=== PATIENT | male | born 1990 | race Caucasian/White ===

== ENCOUNTER 2018-08-02 09:44 | Emergency (ER) | payer SELFPAY ==
[~2018-08-02] VITALS: Ht 170.2 cm; Wt 76.0 kg
[2018-08-02 09:46] VITALS: BP 120/57; PULSE 71; RESP 18; Ht 170.2 cm; Wt 76.0 kg
[2018-08-02] MEDS ORDERED: ACETAMINOPHEN 325 MG TAB PO ONE (10:30)
[2018-08-02] MEDS ORDERED: LIDOCAINE 1%/EPI (MDV) 50 ML INJ INJ ONE (10:30)
[2018-08-02] MEDS ORDERED: LIDOCAINE 1%/EPI (1:100,000) (MDV) 20 ML INJ ONE (11:00)
[2018-08-02] MEDS ORDERED: IBUP-1542 PO (11:16)
[2018-08-02] MEDS ORDERED: DOXY100T20 PO (11:16)
--- NOTE | 2018-08-02 11:18 | ERD ---
ER Documentation Chief Complaint Chief Complaint LEFT JAW RED AND SWOLLEN [id number] HPI 27-year-old male presents with worsening redness and pain on his left jaw area for the last week. He did have a bump there for several months prior. He denies any fevers, vomiting, shortness of breath. ROS All systems reviewed and are negative except as per history of present illness. Medications Home Meds Active Scripts Ibuprofen* (Motrin*) 600 Mg Tab, 600 MG PO Q6, #15 TAB Prov:MATILDE JAY MD 08/02/18 Doxycycline Hyclate* (Doxycycline Hyclate*) 100 Mg Tablet.dr, 100 MG PO BID for 7 Days, TAB Prov:MATILDE JAY MD 08/02/18 Allergies Allergies: Coded Allergies: No Known Allergy (Unverified , 08/02/18) FmHx Family History: No diabetes, No coronary disease, No other Physical Exam Vitals Vital Signs Date Temp Pulse Resp B/P (MAP) Pulse Ox O2 O2 Flow FiO2 Time Delivery Rate 08/02/18 97.4 71 18 120/57 98 09:46 (78) Physical Exam Const: No acute distress Head: Atraumatic Eyes: Normal Conjunctiva ENT: Normal External Ears, Nose and Mouth. Left mandible area there is a erythematous fluctuant area approximately 1-2 cm. No discharge. Airway patent. Neck: Full range of motion. No meningismus. Resp: Clear to auscultation bilaterally Cardio: Regular rate and rhythm, no murmurs Abd: Soft, non tender, non distended. Normal bowel sounds Skin: No petechiae or rashes Back: No midline or flank tenderness Ext: No cyanosis, or edema Neur: Awake and alert Psych: Normal Mood and Affect Results 24 hrs Current Medications Medications Dose Sig/Roberto Start Time Status Last (Trade) Ordered Route PRN Stop Time Admin Dose Reason Admin 650 mg ONCE ONCE 08/02/18 DC Acetaminophen PO 10:30 (Tylenol 08/02/18 10:31 Tab) Lidocaine/ 50 ml ONCE ONCE 08/02/18 DC Epinephrine INJ 10:30 (Xylocaine 08/02/18 10:31 1%/ Epi (Mdv)) Lidocaine/ 20 ml ONCE ONCE 08/02/18 DC Epinephrine INJ 11:00 (Xylocaine 08/02/18 11:01 1%/ Epi (Mdv) 20 ml) Procedures/MDM Patient presents with signs and symptoms of abscess to the left jaw, possibly infected sebaceous cyst. There is no signs of significant facial cellulitis, necrotizing fasciitis, airway obstruction. Procedure note-1 cc lidocaine was used via sterile technique after Betadine prep of the left jaw area. A small incision was made with #11 scalpel. Active sebaceous material was expressed. A portion of the sac was removed via dissection. Patient tolerated procedure well. Sutures were not placed. Wound was dressed. Presents with signs and symptoms of an infected sebaceous cyst. We have incised and drained and removed part of the sac. There is no signs of facial cellulitis, sepsis, additional complications. Will discharge home with doxycycline, ibuprofen, instructions for wound care, soaks for 2-day wound check for worsening redness, fevers, new worsening symptoms. Patient was advised lesion may be recurrent and may require definitive sac removal. This can be taken care of with his primary care doctor and specialist. Departure Diagnosis: Primary Impression: Sebaceous cyst Additional Impression: Abscess Condition: Stable Patient Instructions: Sebaceous Cyst, Infected (I And D) Additional Instructions: Bernard otro vecammie en 2-3 bailey , mas pronto para mas oquendo, echada, fiebre. MATILDE JAY MD Aug 02, 2018 11:18
== END 2018-08-02 13:05 | disposition home or self-care (01) ==
LOC: FTE 09:44
DX: L72.3 Sebaceous cyst (principal); M27.2 Inflammatory conditions of jaws